=== PATIENT | female | born 1970 | race Caucasian/White ===

== ENCOUNTER 2019-05-18 08:30 | Emergency (ER) | payer BC, MEDICAID ==
--- NOTE | 2019-05-18 09:06 | EDM.PDOC ---
ED HPI GENERAL MEDICAL PROBLEM - General Chief Complaint: Neck Problem Stated Complaint: NECK INJURY Time Seen by Provider: 05/18/19 08:49 Source of Information: Reports: Patient History Limitations: Reports: No Limitations - History of Present Illness INITIAL COMMENTS - FREE TEXT/NARRATIVE: Patient is a 48-year-old female who presents with complaints of neck and head pain after falling while ice skating on Saturday. She states that she does believe that she had a loss of consciousness, however she is unsure for how long. She denies any nausea or visual changes since that time. She describes the pain in her neck as pulling and worse on the left than the right. She has not taken any medications for pain this morning. She did take Aleve last night. Patient is not on any blood thinners. Neck Pain Score (Numeric/FACES): 7 - Related Data Allergies Allergy/AdvReac Type Severity Reaction Status Date / Time No Known Allergies Allergy Verified 05/18/19 08:39 Home Meds: Home Meds Cyclobenzaprine [Flexeril] 5 mg PO TID PRN #10 tab 05/18/19 [Rx] ED ROS GENERAL - Review of Systems Review Of Systems: See Below Constitutional: Reports: No Symptoms HEENT: Reports: No Symptoms Respiratory: Reports: No Symptoms Cardiovascular: Reports: No Symptoms Endocrine: Reports: No Symptoms GI/Abdominal: Reports: No Symptoms : Reports: No Symptoms Musculoskeletal: Reports: Neck Pain, Muscle Stiffness Skin: Reports: No Symptoms Neurological: Reports: Headache. Denies: Confusion, Dizziness, Seizure Psychiatric: Reports: No Symptoms Hematologic/Lymphatic: Reports: No Symptoms Immunologic: Reports: No Symptoms ED EXAM, UPPER BACK/NECK PAIN - Physical Exam Exam: See Below Exam Limited By: No Limitations General Appearance: Alert, WD/WN, No Apparent Distress Eye Exam: Bilateral Eye: PERRL Ears Exam: Normal External Exam, Normal Canal, Normal TMs Head Exam: Atraumatic, Normocephalic. No: Scalp Lacerations, Scalp Swelling, Scalp Hematoma Neck Exam: Normal Alignment, Normal Inspection, Limited Range of Motion ( limited by pain), Paraspinous Muscle Tender (left more than right), Stiff Neck Cardiovascular/Respiratory: Regular Rate, Rhythm, Normal Peripheral Pulses, Normal Breath Sounds, No Respiratory Distress GI/Abdominal: Normal Bowel Sounds, Soft, Non-Tender, No Distention, No Mass Back Exam: Normal Inspection, Full Range of Motion. No: Paraspinal Tenderness, Vertebral Tenderness Extremities: Normal Inspection, Normal Range of Motion, Non-Tender Neurologic: No Motor/Sensory Deficits, Alert, Normal Mood/Affect, Oriented x 3 Psychiatric: Normal Affect, Normal Mood Skin Exam: Normal Color, Warm/Dry. No: Ecchymosis Course - Vital Signs Last Recorded V/S: Last Vital Signs Temp 97.4 F 05/18/19 08:36 Pulse 67 05/18/19 08:36 Resp 16 05/18/19 08:36 BP 104/73 05/18/19 08:36 Pulse Ox 100 05/18/19 08:36 - Orders/Labs/Meds Meds: Medications Discontinued Medications Generic Name Dose Route Start Last Admin Trade Name Gloria PRN Reason Stop Dose Admin Ketorolac Tromethamine 60 mg 05/18/19 10:10 Toradol IM 05/18/19 10:11 ONETIME ONE - Re-Assessments/Exams Free Text/Narrative Re-Assessment/Exam: 05/18/19 09:40 CT of the head and neck were negative for any acute injuries indicating that the patient's pain is likely muscular in nature. I will provide the patient with 60 mg of IM Toradol now. I will also send a prescription for Flexeril to be used as needed in addition to [id number] ibuprofen or Aleve. Patient was educated that Flexeril can be sedating and that she should not drive or operate machinery after using this medication. Departure - Departure Time of Disposition: 09:47 Disposition: Home, Self-Care 01 Condition: Fair Clinical Impression: Acute strain of neck muscle Qualifiers: Encounter type: initial encounter Qualified Code(s): S16.1XXA - Strain of muscle, fascia and tendon at neck level, initial encounter - Discharge Information *PRESCRIPTION DRUG MONITORING PROGRAM REVIEWED*: No *COPY OF PRESCRIPTION DRUG MONITORING REPORT IN PATIENT JOSE: No Prescriptions: Cyclobenzaprine [Flexeril] 5 mg PO TID PRN #10 tab PRN Reason: Muscle Spasm Referrals: Angie Otero PA-C [Primary Care Provider] - Forms: ED Department Discharge Additional Instructions: You were seen in the emergency department today with complaints of neck pain and headache after falling while ice skating on Saturday. CT scan of your head and neck were negative indicating that her pain is likely muscular in nature. We recommend that she use [id number] Aleve or ibuprofen for pain. we have also sent a prescription for Flexeril to [facility] [place]. He may use this 3 times daily as needed for muscle spasms. Please be aware that this medication can be sedating so you should not drive or operate machinery after taking this medication. In addition you may use ice or heat to the area. If you should experience any new or worsening symptoms, please do not hesitate to return to the emergency department.
--- NOTE | 2019-05-18 09:32 | CT ---
Head CT Technique: Multiple axial sections through the brain were obtained. Intravenous contrast was not utilized. Comparison: No previous intracranial imaging is available. Findings: Ventricles along with basal cisterns and sulci over the convexities appear within normal limits for the patient's age. No abnormal parenchymal densities are seen. No evidence of intracranial hemorrhage. No midline shift or mass effect is seen. Bone window settings were reviewed which shows no acute calvarial abnormality. Visualized paranasal sinuses are clear. Mastoid sinuses are clear. Impression: 1. Nothing acute is appreciated on noncontrast head CT study. Diagnostic code #1 This report was dictated in [place] Standard Time
--- NOTE | 2019-05-18 09:32 | CT ---
CT cervical spine Technique: Multiple axial sections were obtained from above C1 inferiorly to the bottom of T2. Reconstructed coronal and sagittal images were reviewed. Comparison: No prior cervical spine imaging. Findings: Mild disc space narrowing is noted at C5-6 with anterior osteophytes and mild posterior spurring. Vertebral bodies and posterior arches are intact with no fracture being seen. No abnormal subluxation is seen. No bony central or bony neural foraminal stenosis is seen. Impression: 1. Mild degenerative change. 2. Nothing acute is appreciated on CT study of the cervical spine. Diagnostic code #2 This report was dictated in [place] Standard Time
[2019-05-18] MEDS ORDERED: Ketorolac 60 MG/2 ML SDV IM ONE (10:10)
== END 2019-05-18 10:32 | disposition home or self-care (01) ==
LOC: JD.ED 08:30
DX: S16.1XXA Strain of muscle, fascia and tendon at neck level, initial encounter (principal); V00.131A Fall from skateboard, initial encounter; Y93.51 Activity, roller skating (inline) and skateboarding
CPT/HCPCS: 70450; 72125; 96372; 99284; J1885; 99283